=== PATIENT | male | born 1945 | race Caucasian/White ===

== ENCOUNTER 2024-09-13 18:19 | Emergency (ER) | payer OTHER, SELFPAY ==
[2024-09-13] VITALS (8 sets, daily range): BP systolic 106–141; BP diastolic 57–91; PULSE 96–111; RESP 12–17; TEMP 36.9–37.2; O2SAT 94–99; BMI 27.8
--- NOTE | 2024-09-13 18:24 | HMH.EDGENADL ---
Discharge Plan Disposition Patient Disposition: Home, Self-Care Condition: Good Referrals Follow up/Referrals: Provider,Referral, [Primary Care Provider, Medical] - See instructions Activity Restrictions/Add. Instructions Additional Instructions/Restrictions: Follow-up with your neurologist for your continued headaches. Return to the emergency department for any acute or worsening symptoms. Clinical Impressions Clinical Impression: Headache Print Language Print Language: Uzbek Discharge ED Provider: Treva Arguello Adult HPI General Chief complaint: Chest Pain Stated complaint: Headache Time Seen by Provider: 09/13/24 18:23 History of Present Illness HPI narrative: Patient is a 78-year-old gentleman with a past medical history of umbilical hernia, no history of coronary artery disease, not on blood thinners who presents to the emergency department with a headache, chest pain. Patient had an acute onset of chest pain earlier today that has since resolved, was feeling short of breath when the chest pain occurred but the shortness of breath has again subsided. Patient has not had any infectious symptoms such as fevers cough chills or runny nose. Patient has not had any abdominal pain nausea vomiting or diarrhea. Patient has not had any urinary symptoms. Patient states that he falls frequently at home his last fall was 3 weeks ago. Patient states that he has intermittent headaches has had a headache today. Patient states that his headache is in the back of his head and in the front of his head it was not acute onset but gradual in nature. Patient does not have any vision changes, does not have any numbness or weakness. Patient has been able to ambulate without difficulties. Related Data Allergies Allergy/AdvReac Type Severity Reaction Status Date / Time No Known Allergies Allergy Verified 09/13/24 18:37 [facility] Disclaimer: The information contained in this section may have been updated after the patient was seen, as this information can be updated by other users. Social History Smoking Status: Former smoker alcohol intake: current current occupational status: other Travel in the last 8 weeks?: None ROS Obtained: Yes All systems reviewed & no additional complaints except as documented and Yes Systems reviewed as appropriate & no additional complaints except as documented Physical Exam General General appearance: alert and in no apparent distress Head Head exam: atraumatic, normocephalic and normal inspection Eye Eye exam: Present normal appearance, PERRL and EOMI; Absent scleral icterus ENT ENT exam: Present normal exam and normal external ear exam Neck Neck exam: Present normal inspection and full ROM Chest Chest inspection: Present normal inspection and symmetric chest wall rise Respiratory Respiratory exam: Present normal lung sounds bilaterally; Absent respiratory distress or wheezes Cardiovascular Cardiovascular exam: Present regular rate, normal rhythm and normal heart sounds Abdominal Exam Abdominal exam: Present soft and distention; Absent tenderness, guarding or rebound Extremities Exam Extremities exam: Present normal inspection and full ROM Back Exam Back exam: Present normal inspection and full ROM Neurological Exam Neurological exam: Present alert and oriented X3 Psychiatric Psychiatric exam: Present normal affect and normal mood Skin Skin exam: Present warm and dry Medical Decision Making Medical Records Screening: Per USPSTF and CDC recommendations, given the prevalence of disease in our region, it is our hospital?s policy to screen for HIV and viral Hepatitis for all patients aged 18 and over and those with ongoing risk factors. Harley Inquiry Pt receiving controlled substance: No Vital Signs: 09/13/24 18:26 09/13/24 18:26 09/13/24 18:30 Temperature 99.0 F 99.0 F Temperature Source Oral Oral Pulse Rate 104 H 105 H Pulse Rate [Right] 104 H Respiratory Rate 16 16 12 Blood Pressure 133/69 131/64 Blood Pressure [Right Arm] 133/69 Blood Pressure Mean [Right Arm] 90 Blood Pressure Source [Right Arm] Automatic Cuff Blood Pressure Position Blood Pressure Position [Right Arm] Supine 02 Sat by Pulse Oximetry 99 99 99 Oxygen Delivery Method Room Air Room Air 09/13/24 19:00 09/13/24 19:30 09/13/24 20:00 Temperature Temperature Source Pulse Rate 109 H 111 H 107 H Pulse Rate [Right] Respiratory Rate 17 16 16 Blood Pressure 125/91 H 131/69 129/68 Blood Pressure [Right Arm] Blood Pressure Mean [Right Arm] Blood Pressure Source [Right Arm] Blood Pressure Position Blood Pressure Position [Right Arm] 02 Sat by Pulse Oximetry 98 94 L 96 Oxygen Delivery Method 09/13/24 20:30 09/13/24 21:00 09/13/24 23:05 Temperature 98.5 F Temperature Source Pulse Rate 108 H 104 H 96 H Pulse Rate [Right] Respiratory Rate 16 16 16 Blood Pressure 141/77 H 114/62 106/57 L Blood Pressure [Right Arm] Blood Pressure Mean [Right Arm] Blood Pressure Source [Right Arm] Blood Pressure Position Sitting Blood Pressure Position [Right Arm] 02 Sat by Pulse Oximetry 96 96 Oxygen Delivery Method Room Air Lab Data Lab results reviewed: Yes I reviewed the patient's lab results. Lab Results 09/13/24 18:22: WBC 9.3, RBC 4.01 L, Hgb 11.0 L, Hct 33.9 L, MCV 84.5, MCH 27.4, MCHC 32.4, RDW 14.6, Plt Count 233, MPV 9.3, Neut % (Auto) 82.4 H, Lymph % (Auto) 10.1, Warrick % (Auto) 6.5, Eos % (Auto) 0.3, Baso % (Auto) 0.4, Neut # (Auto) 7.6, Lymph # (Auto) 0.9, Warrick # (Auto) 0.6, Eos # (Auto) 0.0, Baso # (Auto) 0.0, D-Dimer 0.85 H, Sodium 136, Potassium 4.7, Chloride 100, Carbon Dioxide 26, Anion Gap 14.7, BUN 19, Creatinine 2.10 H, Estimated Creat Clear 36, Estimated GFR 31 L, Est GFR ( Amer) 37 L, Glucose 183 H, Calcium 9.7, Total Bilirubin 0.7, AST 30, ALT 20, Alkaline Phosphatase 101, Troponin I < 0.01, Total Protein 7.7, Albumin 4.5, Globulin 3.2, Albumin/Globulin Ratio 1.4 09/13/24 19:14: VBG pH 7.37, VBG pCO2 46.1, VBG pO2 38.2, VBG HCO3 25.9, VBG Total CO2 27.3 H, VBG O2 Saturation 71.4 H, VBG Base Excess 0.5, VBG Lactic Acid 1.5 09/13/24 21:22: Troponin I < 0.01 09/13/24 18:22 09/13/24 18:22 Orders (Tests/Meds): ED MEDICATIONS Discontinued Medications Generic Name Dose Route Start Last Admin Trade Name Carltonq PRN Reason Stop Dose Admin Diphenhydramine HCl 12.5 mg 09/13/24 18:54 09/13/24 19:14 Diphenhydramine 50mg/Ml Vial IV 09/13/24 18:55 12.5 mg ONCE ONE Administration Droperidol 2.5 mg 09/13/24 18:50 09/13/24 19:14 Droperidol 5mg/2ml Vial IV 09/13/24 18:51 2.5 mg ONCE ONE Administration Sodium Chloride 1,000 mls @ 999 mls/hr 09/13/24 20:03 09/13/24 20:06 Sod Chlor 0.9% 1000ml Bag IV 09/13/24 21:03 999 mls/hr .Q1H1M ONE Administration ORDERS Category Date Time Status CT head/brain wo con Stat Cat Scan 09/13/24 18:50 Completed CXR --portable [XR chest portable] Stat Exams 09/13/24 18:53 Completed CBC w/Auto Diff [Complete Blood Count Auto Diff] Stat Lab 09/13/24 18:22 Completed CMP [Comprehensive Metabolic Panel] Stat Lab 09/13/24 18:22 Completed D-Dimer Stat Lab 09/13/24 18:22 Completed Trop I [Troponin I] Stat Lab 09/13/24 18:22 Completed Troponin I Q3H Lab 09/13/24 21:22 Completed VBG [Venous Blood Gas] Stat RT 09/13/24 19:14 Completed Medical Decision Narrative: Patient is a 78-year-old gentleman with a past medical history of diabetes, umbilical hernia who presented to the emergency department with an episode of chest pain, shortness of breath that has since subsided as well as a headache. On arrival, patient was mildly tachycardic, blood pressure was unremarkable, vital signs were otherwise unremarkable. Differential includes but not limited to: Tension headache, migraine headache, intracranial pathology, ACS/CO, pulmonary embolism, pneumonia, electrolyte abnormalities, dehydration, amongst others. Patient's labs were reviewed and interpreted by myself: Patient CBC showed no leukocytosis, hemoglobin was stable. Patient's D-dimer was elevated at 0.85. Patient's creatinine is 2.10. Initial troponin less than 0.01. Second troponin less than 0.01. Patient's chest x-ray was reviewed and interpreted by myself and showed no acute focal consolidation, pneumothorax, pleural effusion or other acute cardiopulmonary process. CT head was reviewed and interpreted by myself and showed no acute intracranial pathology. Patient's EKG was reviewed and interpreted by myself and showed sinus tachycardia at [address] or T wave changes concerning for ischemia Patient was given a migraine cocktail with droperidol and Benadryl with plan for reassessment. Patient receives all of his care at the [facility] therefore we have no outside records for baseline labs. Although patient's D-dimer was elevated, patient was negative by years criteria for pulmonary embolism. Patient's headache significantly improved after migraine cocktail in the emergency department. From a cardiac standpoint, patient's troponins were less than 0.01 on 3-hour repeat. Patient's EKG was otherwise unremarkable. Records from the [facility] were obtained and patient has a baseline creatinine of 2 therefore low concern for new PAOLO at this time. Given patient's symptomatic improvement in the emergency department felt that patient was appropriate discharge. Patient was given return precautions and advised to follow-up with his primary care provider. Critical Care Critical Care Time Critical Care Time: No
--- NOTE | 2024-09-13 18:50 | ECG_ITS ---
APPROVED REPORT Exam: Resting ECG HR:103 bpm ECG Measurements Heart Rate 103 AXES GA 188 P 55 QRSd 93 QRS -57 QT 332 T 56 QTc 391 Conclusion Sinus tachycardia at [address] or T wave changes concerning for ischemia Electronically signed by : Treva Arguello, 09/14/2024 00:35:36
--- NOTE | 2024-09-13 18:50 | CT_ITS ---
PROCEDURE INFORMATION: Exam: CT Head Without Contrast Exam date and time: 09/13/2024 7:40 PM Age: 78 years old Clinical indication: Pain; Headache TECHNIQUE: Imaging protocol: Computed tomography of the head without contrast. Radiation optimization: All CT scans at this facility use at least one of these dose optimization techniques: automated exposure control; mA and/or kV adjustment per patient size (includes targeted exams where dose is matched to clinical indication); or iterative reconstruction. COMPARISON: No relevant prior studies available. FINDINGS: Brain: Age related brain involution is present. Diffuse subcortical and periventricular white matter hypodensities are most in favor with chronic small vessel disease. No extra-axial fluid collections. No midline shift. There is no evidence of uncal or subfalcine herniation. Oneill-white matter differentiation is preserved. There is no evidence of intracranial hemorrhage. Cerebral ventricles: Compensatory exvacuo ventriculomegaly. Paranasal sinuses: Paranasal sinuses are clear. Mastoid air cells: The mastoid sinuses are clear. Orbital cavities: Bilateral lens replacement, otherwise orbits are unremarkable. Bones: No acute skeletal abnormality or aggressive osseous lesion. Soft tissues: No acute soft tissue findings. Other findings: Intracranial atherosclerosis is present. IMPRESSION: No acute intracranial pathology.
--- NOTE | 2024-09-13 18:53 | XR_ITS ---
PROCEDURE INFORMATION: Exam: XR Chest Exam date and time: 09/13/2024 7:42 PM Age: 78 years old Clinical indication: Pain; Left-sided; Additional info: Chest pain TECHNIQUE: Imaging protocol: Radiologic exam of the chest. Views: 1 view. COMPARISON: No relevant prior studies available. FINDINGS: Airway: Airways are patent. Lungs: Low lung volumes causes crowding of the bronchovascular structures. Increased density in the left lung base. Remainder of the lungs are clear. Pleural spaces: Blunting of the left costophrenic angle. Right costophrenic angle is clear. There is no evidence of pneumothorax. Heart/Mediastinum: Cardiomediastinal silhouette is magnified due to technique. Bones/joints: No acute skeletal abnormality or aggressive osseous lesion. Soft tissues: No acute soft tissue findings. IMPRESSION: 1. Increased density in the left lung base. Differential would include developing pneumonia or artifact from superimposition of structures. 2. Blunting of the left costophrenic angle. Differential would include small effusion or artifact from superimposition of structures.
[2024-09-13 19:03] LABS: Hematocrit 33.9 % (42.0-52.0); Hemoglobin 11.0 g/dL (14.1-18.0); Immature Granulocytes % 0.3 %; Mean Corpuscular HGB Conc 32.4 g/dL (31.8-35.4); Mean Corpuscular Hemoglobin 27.4 pg (27.0-31.2); Mean Corpuscular Volume 84.5 fl (80-94); Nucleated Red Blood Cells % 0 %; Platelet Count 233 K/mm3 (142-424); Red Blood Count 4.01 M/mm3 (4.60-6.20); Red Cell Distribution Width-SD 44.8 fL; White Blood Count 9.3 K/mm3 (4.8-10.8)
[2024-09-13 19:12] LABS: Alanine Aminotransferase 20 U/L (12-78); Albumin Level 4.5 g/dl (3.5-5.0); Albumin/Globulin Ratio 1.4 (1.1-1.8); Alkaline Phosphatase 101 U/L (38-126); Anion Gap 14.7 mEq/L (5-15); Aspartate Amino Transferase 30 U/L (17-59); Bilirubin,Total 0.7 mg/dl (0.2-1.3); Blood Urea Nitrogen 19 mg/dl (9-20); Calcium 9.7 mg/dl (8.4-10.2); Carbon Dioxide 26 mmol/L (22.0-30.0); Chloride 100 mmol/L (98-107); Creatinine Clearance Estimated 36 mL/min (50-200); Creatinine,Serum 2.10 mg/dl (0.66-1.25); Estimated Glomerular Filt Rate 31 ml/min (>60); GFR (African American) 37 ML/MIN (>60); Globulin 3.2 g/dL (1.3-3.2); Glucose 183 mg/dl (74-100); Potassium 4.7 mmoL/L (3.5-5.1); Sodium 136 mmol/L (136-145); Total Protein,Serum 7.7 g/dl (6.3-8.2)
[2024-09-13] MEDS: droPERidol 5MG/2ML VIAL 2.5 MG IV (19:14)
--- NOTE | 2024-09-13 19:15 | PC.NURSE ---
respiratory contacted and made aware of VBG that was sent to the lab
[2024-09-13 19:16] LABS: D-Dimer 0.85 ug/mL (0.0-0.5)
[2024-09-13 19:53] LABS: Troponin I < 0.01 ng/ml (0.00-0.034)
[2024-09-13] MEDS: 0.9 % SODIUM CHLORIDE 1000ML 1,000 ML 999 ML IV (20:06)
[2024-09-13 20:08] LABS: Lactate Venous 1.5 mmol/L (0.4-2.0); VBG HCO3 25.9 mmol/L (23-30); VBG PCO2 46.1 mmol/L (35-51); VBG PH 7.37 mmol/L (7.31-7.41); VBG PO2 38.2 mmol/L (28-40)
--- NOTE | 2024-09-13 20:29 | PC.NURSE ---
called [facility] at 8[facility] dockery
--- NOTE | 2024-09-13 20:44 | PC.NURSE ---
spoke with [facility] said the medical records release form came through [facility] and requested that we resend was resent to the [facility] at 8:44pm
--- NOTE | 2024-09-13 21:23 | PC.NURSE ---
2nd trop drawn and sent to the lab at this time
--- NOTE | 2024-09-13 22:35 | PC.NURSE ---
lab contacted regarding pending repeat trop result. Maryjo states 5 mins
[2024-09-13 22:42] LABS: Troponin I < 0.01 ng/ml (0.00-0.034)
== END 2024-09-13 23:06 | disposition home or self-care (01) ==
PROVIDERS: Emergency Provider Student in an Organized Health Care Education/Training Program
DX: R07.9 Chest pain, unspecified (principal); R51.9 Headache, unspecified; R00.0 Tachycardia, unspecified; Z87.891 Personal history of nicotine dependence
CPT/HCPCS: 70450; 71045; 80053; 82803; 84484; 85025; 85378; 93005; 96361; 96374; 96375; 99285; J1200; J1790; J7030